=== PATIENT | female | born 1985 | race Caucasian/White ===

== ENCOUNTER 2018-09-23 08:11 | Outpatient (CLI) | payer BC ==
--- NOTE | 2018-10-08 09:05 | Mammography Report ---
Reason: ROUTINE SCREENING MAMMO Procedure Date: 09/23/2018 Accession Number: [id number] / [id number] Procedure: MGN - Screening Mammo Dig Bilat CPT Code: FULL RESULT: EXAM: Screening Mammo Dig Bilat DATE: 09/23/2018 10:37 AM CLINICAL HISTORY: Screening encounter. History of early menses. Family history of breast cancer in the mother at the age of 33. TECHNIQUE: (B) - Bilateral CC, laterally exaggerated CC, MLO views were obtained. COMPARISON: Baseline mammogram. PARENCHYMAL PATTERN: (D) - The breast(s) demonstrate(s) heterogeneously dense fibroglandular parenchyma. FINDINGS: There are no suspicious masses, calcifications, or areas of distortion. IMPRESSION: Negative examination. BI-RADS category 1. RECOMMENDATION: (ANNUAL) - Recommend routine annual screening mammography. With the assumption of formally assessed high risk, current starting age is appropriate. Given current high breast density, would recommend consideration for utilization of 3-D mammography to improve specificity and sensitivity of the examination. Alternatively, consider adding utilization of screening breast MRI if congruent with risk factors. BI-RADS CATEGORY: (1) - Negative. STANDARD QUALIFYING STATEMENTS: 1. This examination was not reviewed with the aid of Computer-Aided Detection (CAD). 2. A negative or benign imaging report should not preclude biopsy if clinically suspicious findings are present. 3. Dense breasts may obscure an underlying neoplasm. 4. This examination was reviewed without the aid of 3D breast imaging (tomosynthesis).
== END 2018-09-23 08:12 | disposition home or self-care (01) ==
LOC: DI.N 08:11
PROVIDERS: ATTEND Internal Medicine
DX: Z12.31 Encounter for screening mammogram for malignant neoplasm of breast (principal); Z80.3 Family history of malignant neoplasm of breast
CPT/HCPCS: 77067

== ENCOUNTER → 2019-11-25 | Outpatient (CLI) | payer BC | LOC: LAB.R 08:00 | PROVIDERS: ATTEND Internal Medicine | DX: R85.5 Abnormal microbiological findings in specimens from digestive organs and abdominal cavity (principal) | CPT/HCPCS: 81599; 87177; 87209 ==

== ENCOUNTER 2020-01-27 16:49 | Outpatient (CLI) | payer BC ==
[2020-01-27] MEDS ORDERED: GADOBUTROL 7.5 MMOL/7.5 ML VIAL ONE (17:11)
[2020-01-27] MEDS ORDERED: GADOBUTROL 7.5 MMOL/7.5 ML VIAL IVP ONE (17:48)
--- NOTE | 2020-01-27 18:50 | MRI Report ---
PROCEDURE: Brain W/WO INDICATIONS: SEVERE VERTIGO, PARESTHESIA CONTRAST: IV CONTRAST: Gadavist ml: 5.5 TECHNIQUE: Noncontrast axial T1 spin echo, axial T2 fast spin echo, sagittal and axial FLAIR, coronal T2 fast sp in echo, axial gradient echo, axial diffusion and ADC through the brain. Thin section heavily T2-weig hted images were obtained through the skull base. After the administration of contrast, axial and cor onal T1 spin echo with fat saturation through the brain. Thin section T1-weighted fat-saturated post contrast axial and coronal images were obtained through the internal auditory canals. COMPARISON: None. FINDINGS: Image quality: Excellent. CSF spaces: Basal cisterns are patent. No extra-axial fluid collections. Ventricles are normal in size and shape. Brain: In this patient with this given history, scrutiny is given to the internal auditory canals an d the cerebellopontine angle cisterns. No masses or abnormal enhancement can be seen within these reg ions. No midline shift. No intracranial bleeds or masses. No abnormal intracranial enhancement. The brai nstem appears normal. Diffusion-weighted images demonstrate no acute ischemic insults. No chronic i schemic insults. Normal intravascular flow voids are present. Skull and face: Calvarial marrow is normal in signal. Orbits appear normal. Sinuses: Sinuses and mastoids appear clear. IMPRESSION: No findings of acute or subacute infarction are seen. No masses or abnormal enhancement can be seen within the internal auditory canals or within the cereb ellopontine angle cisterns. Reviewed by: Mike Jay MD on 01/27/2020 5:49 PM [place] Approved by: Mike Jay MD on 01/27/2020 5:49 PM [place] Station ID: [id number]
== END 2020-01-27 16:50 | disposition home or self-care (01) ==
LOC: DI 16:49
PROVIDERS: ATTEND Internal Medicine
DX: R42 Dizziness and giddiness (principal); R20.2 Paresthesia of skin
CPT/HCPCS: 70553; A9585

== ENCOUNTER 2021-06-27 15:04 | Outpatient (CLI) | payer BC ==
[2021-06-27] MEDS ORDERED: GADOBUTROL 7.5 MMOL/7.5 ML VIAL ONE (15:38)
[2021-06-27] MEDS ORDERED: GADOBUTROL 7.5 MMOL/7.5 ML VIAL IVP ONE (16:30)
--- NOTE | 2021-06-27 17:03 | MRI Report ---
PROCEDURE: Neck Soft Tissue W/WO INDICATIONS: SEVERE RIGHT NECK AND FACE PAIN CONTRAST: IV CONTRAST: Gadavist ml: 5.4 TECHNIQUE: Sagittal/axial/coronal T1 spin echo and STIR. After the administration of contrast, axial/coronal/sa gittal T1 fast spin echo with fat saturation through the neck. COMPARISON: Correlation is made with prior brain MRI, 01/27/2020. Correlation is made with outside [facility] CT, 05/02/2020 and [facility] soft tissue neck ultrasound, 02/14/2021. FINDINGS: Image quality: Motion artifact is noted. Lymph nodes: Borderline prominent lymph nodes can be seen involving both sides of the neck, primaril y at level 2A, without laila enlargement. Vessels: Visualized vasculature appears normal, with carlito flow voids and enhancement. Neck spaces: The oropharynx, nasopharynx and pharynx are unremarkable, without mucosal lesions seen. Vocal cords, false vocal cords, pyriform sinuses, epiglottis, vallecula, and tongue base all appear normal. Extramucosal spaces of the neck also appear unremarkable. Glands: The parotid and submandibular glands appear normal. The thyroid is normal in size and there are no incidental findings. Miscellaneous: Visualized brain and orbits appear normal. Lung apices appear clear. Superficial so ft tissues appear normal. Visualized sinuses and mastoids appear clear. Bones: Marrow has normal overall signal. IMPRESSION: No imaging explanation is found for the patient's presenting symptoms. Borderline prominent neck lymph nodes are again seen, without laila enlargement. Reviewed by: Mike Jay MD on 06/27/2021 4:02 PM LEROY Approved by: Mike Jay MD on 06/27/2021 4:02 PM AKTRENT Station ID: [id number]
== END 2021-06-27 15:05 | disposition home or self-care (01) ==
LOC: DI 15:04
PROVIDERS: ATTEND Internal Medicine
DX: M54.2 Cervicalgia (principal); G50.1 Atypical facial pain; Z79.899 Other long term (current) drug therapy; R59.0 Localized enlarged lymph nodes
CPT/HCPCS: 70543; A9585

== ENCOUNTER 2021-07-25 09:18 | Outpatient (CLI) | payer BC, OTHER ==
--- NOTE | 2021-07-25 13:46 | Mammography Report ---
BILATERAL DIGITAL SCREENING MAMMOGRAM 3D/2D: 07/25/2021 CLINICAL: Family history of breast cancer. Routine screening. Comparison is made to exams dated: 09/23/2018 mammogram - [facility] and 11/16/2012 mammogram - [facility]. The tissue of both breasts is heterogeneously dense. This m ay lower the sensitivity of mammography. No significant masses, calcifications, or other findings are seen in either breast. There has been no significant interval change. IMPRESSION: NEGATIVE There is no mammographic evidence of malignancy. A 1 year screening mammogram is recommended. This exam was interpreted at Station ID: [id number]. NOTE: For mammograms, a report in lay terms will be sent to the patient. Approximately 15% of breast malignancies will not be visualized mammographically. In the management of a palpable breast mass, a negative mammogram must not discourage biopsy of a clinically suspicious lesion. Electronically Signed By: Gaurav Gongora M.D. slc/penrad:07/25/2021 10:53:08 ACR BI-RADS Category 1: Negative [id number] PARENCHYMAL PATTERN: (D) - The breast(s) demonstrate(s) heterogeneously dense fibroglandular pierce mackenzie. BI-RADS CATEGORY: (1) - 1 RECOMMENDATION: (ANNUAL) - Recommend routine annual screening mammography. [id number] 1 year screening LATERALITY: (B)
== END 2021-07-25 09:19 | disposition home or self-care (01) ==
LOC: DI.N 09:18
PROVIDERS: ATTEND Obstetrics & Gynecology
DX: Z12.31 Encounter for screening mammogram for malignant neoplasm of breast (principal); Z80.3 Family history of malignant neoplasm of breast

== ENCOUNTER 2022-09-01 08:00 | Outpatient (CLI) | payer OTHER ==
[2022-09-01 18:13] LABS: CHLAMYDIA TRACHOMATIS DNA NEGATIVE (NEGATIVE); NEISSERIA GONORRHOEAE DNA NEGATIVE (NEGATIVE)
[2022-09-01 20:48] LABS: BACTERIAL VAGINOSIS DNA NEGATIVE (NEGATIVE); CANDIDA GLABRATA DNA NEGATIVE (NEGATIVE); CANDIDA GROUP DNA NEGATIVE (NEGATIVE); CANDIDA KRUSEI DNA NEGATIVE (NEGATIVE); TRICHOMONAS VAGINALIS DNA NEGATIVE (NEGATIVE)
== END 2022-09-01 23:59 | disposition home or self-care (01) ==
LOC: LAB.WC 08:00
PROVIDERS: ATTEND Nurse Practitioner
DX: Z11.3 Encounter for screening for infections with a predominantly sexual mode of transmission (principal)
CPT/HCPCS: 81514; 87491; 87591; 87661